=== PATIENT | male | born 1950 | race Caucasian/White ===

== ENCOUNTER 2018-01-04 15:19 | Inpatient (IN) | payer OTHER, MEDICARE ==
[~2018-01-04] VITALS: Ht 180.3 cm; Wt 75.4 kg
[2018-01-04 17:00] VITALS: BP 179/97
[2018-01-04] MEDS ORDERED: GABAPENTIN TAB600 MG PO (17:07)
[2018-01-04] MEDS ORDERED: ZOLOFT100 MG PO (17:07)
[2018-01-04] MEDS ORDERED: OMEPRAZOLE D/R20 MG PO (17:07)
[2018-01-04] MEDS ORDERED: PROSCAR5 M1 PO (17:08)
[2018-01-04] MEDS ORDERED: NORVASC2.5 MG PO (17:09)
[2018-01-04] MEDS ORDERED: ASPIRIN81 M1 PO (17:09)
[2018-01-04] MEDS ORDERED: PERCOCET 10-321 EACH PO (17:13)
[2018-01-04 18:21] LABS: BASO % 0.6 % (0.0-1.0); EOS # 0.1 10*3/uL (0.0-0.4); EOS % 1.4 % (1.0-4.0); HEMATOCRIT 34.9 % (42.0-52.0); HEMOGLOBIN 11.8 g/dl (14.0-18.0); LYMPH # 1.1 10*3/uL (1.3-4.4); LYMPH % 22.2 % (27.0-41.0); MEAN CELL VOLUME 89.9 fl (80.0-94.0); MEAN CORPUSCULAR HGB 30.4 pg (27.0-31.0); MEAN CORPUSCULAR HGB CONC 33.8 g/dl (33.0-37.0); MEAN PLATELET VOLUME 9.1 fl (9.6-12.3); MONO # 0.5 10*3/uL (0.1-1.0); MONO % 9.4 % (3.0-9.0); NEUT # 3.3 10*3/uL (2.3-7.9); NEUT % 66.2 % (47.0-73.0); PLATELET COUNT AUTOMATED 161 10*3/uL (130-400); RED BLOOD COUNT 3.88 10*6/uL (4.50-5.90); RED CELL DISTRI WIDTH 14.7 % (0-14.5)
[2018-01-04 18:29] LABS: INTERNATIONAL NORM RATIO 0.9 (2.0-3.5)
[2018-01-04 18:32] LABS: PHOSPHOROUS 2.7 mg/dL (2.5-4.9)
[2018-01-04 18:37] LABS: ALBUMIN 3.6 gm/dl (3.1-4.5); ALKALINE PHOSPHATASE 92 U/L (45-117); BUN 11 mg/dl (7-24); CHLORIDE 98 mmol/L (98-107); CREATININE 1.15 mg/dL (0.70-1.30); POTASSIUM 4.7 mmol/L (3.5-5.1); SGOT/AST 14 IU/L (3-35); SGPT/ALT 19 U/L (12-78); SODIUM 131 mmol/L (136-145); TOTAL PROTEIN 6.8 gm/dL (6.4-8.2)
[2018-01-04 18:42] LABS: URINE AMPHETAMINES < 1000 (1000ng/ml); URINE BARBITURATES < 200 (200ng/ml); URINE BENZODIAZEPINES < 200 (200ng/ml); URINE CANNABINOIDS (THC) < 50 (50ng/ml); URINE COCAINE < 300 (300ng/ml); URINE METHADONE < 300 (300ng/ml); URINE OPIATES < 300 (300ng/ml)
[2018-01-04 18:45] LABS: VITAMIN D, 25-HYDROXY 18.5 ng/mL (30-100)
[2018-01-04 19:04] LABS: ETHYL ALCOHOL < 3.0 mg/dl (<3)
[2018-01-04 19:04] LABS: URINE PHENCYCLIDINE < 25 (25ng/ml)
[2018-01-04 20:00] VITALS: BP 164/77
[2018-01-05] VITALS: BP 158/83
[2018-01-05 08:00] VITALS: BP 167/86
[2018-01-05 11:42] LABS: FREE T4 0.69 ng/dl (0.76-1.46)
[2018-01-05 11:45] LABS: TROPONIN I < 0.015 ng/ml (<0.045)
[2018-01-05 11:47] LABS: THYROID STIM HORMONE (HS) 0.516 uIU/ml (0.358-4.75)
[2018-01-05 11:50] VITALS: BP 144/76
[2018-01-05 12:00] VITALS: BP 126/70
[2018-01-05 16:00] VITALS: BP 148/74
[2018-01-05 20:00] VITALS: BP 146/78
[2018-01-06] VITALS (8 sets, daily range): BP systolic 104–188; BP diastolic 58–102
[2018-01-06 05:27] LABS: ALBUMIN 3.3 gm/dl (3.1-4.5); ALKALINE PHOSPHATASE 81 U/L (45-117); BUN 11 mg/dl (7-24); CHLORIDE 98 mmol/L (98-107); CREATININE 0.72 mg/dL (0.70-1.30); PHOSPHOROUS 2.8 mg/dL (2.5-4.9); POTASSIUM 3.9 mmol/L (3.5-5.1); SGOT/AST 11 IU/L (3-35); SGPT/ALT 17 U/L (12-78); SODIUM 133 mmol/L (136-145); TOTAL PROTEIN 6.3 gm/dL (6.4-8.2)
[2018-01-06 05:57] LABS: BASO % 0.4 % (0.0-1.0); EOS # 0.2 10*3/uL (0.0-0.4); EOS % 2.8 % (1.0-4.0); HEMATOCRIT 35.5 % (42.0-52.0); HEMOGLOBIN 11.7 g/dl (14.0-18.0); LYMPH # 1.4 10*3/uL (1.3-4.4); LYMPH % 20.9 % (27.0-41.0); MEAN CELL VOLUME 92.2 fl (80.0-94.0); MEAN CORPUSCULAR HGB 30.4 pg (27.0-31.0); MONO # 0.5 10*3/uL (0.1-1.0); MONO % 6.9 % (3.0-9.0); NEUT # 4.7 10*3/uL (2.3-7.9); NEUT % 68.9 % (47.0-73.0); PLATELET COUNT AUTOMATED 158 10*3/uL (130-400); RED BLOOD COUNT 3.85 10*6/uL (4.50-5.90); RED CELL DISTRI WIDTH 14.7 % (0-14.5); WHITE BLOOD COUNT 6.8 10*3/uL (4.8-10.8)
[2018-01-07] VITALS: BP 164/81
[2018-01-07 04:00] VITALS: BP 138/74
[2018-01-07 04:29] LABS: BASO % 0.4 % (0.0-1.0); EOS # 0.4 10*3/uL (0.0-0.4); EOS % 5.2 % (1.0-4.0); HEMATOCRIT 31.2 % (42.0-52.0); HEMOGLOBIN 10.6 g/dl (14.0-18.0); LYMPH # 1.6 10*3/uL (1.3-4.4); LYMPH % 23.5 % (27.0-41.0); MEAN CELL VOLUME 89.7 fl (80.0-94.0); MEAN CORPUSCULAR HGB 30.5 pg (27.0-31.0); MEAN PLATELET VOLUME 9.4 fl (9.6-12.3); MONO # 0.5 10*3/uL (0.1-1.0); MONO % 7.3 % (3.0-9.0); NEUT # 4.2 10*3/uL (2.3-7.9); NEUT % 63.2 % (47.0-73.0); PLATELET COUNT AUTOMATED 138 10*3/uL (130-400); RED BLOOD COUNT 3.48 10*6/uL (4.50-5.90); RED CELL DISTRI WIDTH 14.6 % (0-14.5); WHITE BLOOD COUNT 6.7 10*3/uL (4.8-10.8)
[2018-01-07 05:06] LABS: ALKALINE PHOSPHATASE 73 U/L (45-117); BUN 14 mg/dl (7-24); CHLORIDE 99 mmol/L (98-107); CREATININE 0.84 mg/dL (0.70-1.30); PHOSPHOROUS 3.1 mg/dL (2.5-4.9); POTASSIUM 3.9 mmol/L (3.5-5.1); SGOT/AST 10 IU/L (3-35); SGPT/ALT 15 U/L (12-78); SODIUM 132 mmol/L (136-145); TOTAL PROTEIN 5.9 gm/dL (6.4-8.2)
[2018-01-07 08:00] VITALS: BP 160/90; BP 172/86
[2018-01-07] MEDS ORDERED: VITAMIN D-32000 UNIT PO (09:51)
[2018-01-07] MEDS ORDERED: LIBRIUM5 MG PO (09:51)
[2018-01-07] MEDS ORDERED: NATURE'S BLEND F1 MG PO (09:51)
[2018-01-07] MEDS ORDERED: AMLODIPINE BESY10 MG PO (09:51)
[2018-01-07] MEDS ORDERED: NATURE'S BLEND100 M2 PO (09:51)
[2018-01-07 10:35] VITALS: BP 140/80
== END 2018-01-07 10:45 | disposition home or self-care (01) | DRG 305 ==
LOC: 4E 15:19 → ICCU 15:19 → 4E 19:41 → ICCU 01-05 11:33
PROVIDERS: Internal Medicine
DX: I16.0 Hypertensive urgency (principal); E44.1 Mild protein-calorie malnutrition; F10.239 Alcohol dependence with withdrawal, unspecified; E87.1 Hypo-osmolality and hyponatremia; J43.9 Emphysema, unspecified; E83.41 Hypermagnesemia; D64.9 Anemia, unspecified; M19.90 Unspecified osteoarthritis, unspecified site; M79.7 Fibromyalgia; I10 Essential (primary) hypertension; F32.9 Major depressive disorder, single episode, unspecified; F41.1 Generalized anxiety disorder; N40.1 Benign prostatic hyperplasia with lower urinary tract symptoms; Z96.1 Presence of intraocular lens; K21.9 Gastro-esophageal reflux disease without esophagitis; G89.4 Chronic pain syndrome; I25.118 Atherosclerotic heart disease of native coronary artery with other forms of angina pectoris; E83.51 Hypocalcemia; R73.9 Hyperglycemia, unspecified; E55.9 Vitamin D deficiency, unspecified; Z96.643 Presence of artificial hip joint, bilateral; Z98.42 Cataract extraction status, left eye; Z98.41 Cataract extraction status, right eye; Z88.8 Allergy status to other drugs, medicaments and biological substances; Z72.0 Tobacco use; Z71.6 Tobacco abuse counseling; Z79.899 Other long term (current) drug therapy; Z79.82 Long term (current) use of aspirin; Z68.23 Body mass index [BMI] 23.0-23.9, adult